=== PATIENT | male | born 1980 | race Caucasian/White ===

== ENCOUNTER 2016-03-25 10:57 | Emergency (ER) | payer MEDICARE, OTHER ==
[2016-03-25] MEDS ORDERED: KETOROLAC TROMETHAMINE 60 MG/2 ML VIAL IM ONE ×2 (11:46→11:48)
--- NOTE | 2016-03-25 11:46 | ERNOTE ---
ER Male HPI Date of Service: 03/25/16 Stated Complaint: BACK PAIN ER Male: testicular pain Time Seen by Provider: 03/25/16 11:29 Source: patient Exam Limitations: no limitations Immunizations: IMMUNIZATION HX Immunizations Up to Date Yes History of Influenza Vaccine No Hx Pneumococcal Vaccination No Allergies/Adverse Reactions: Allergies fluvoxamine Allergy (Verified 03/25/16 11:13) haloperidol [From Haldol] Allergy (Verified 03/25/16 11:13) haloperidol lactate [From Haldol] Allergy (Verified 03/25/16 11:13) olanzapine [From Zyprexa] Allergy (Verified 03/25/16 11:13) ziprasidone HCl [From Geodon] Allergy (Verified 03/25/16 11:13) ziprasidone mesylate [From Geodon] Allergy (Verified 03/25/16 11:13) Home Medications: HOME MEDICATIONS ALPRAZolam [Xanax] 0.5 mg PO BID PRN 01/06/16 [Last Taken Unknown] Quetiapine Fumarate [Seroquel] 300 mg PO DAILY 01/06/16 [Last Taken Unknown] Meloxicam 7.5 mg PO DAILY #10 tablet 03/25/16 [Last Taken Unknown] traMADol HCL [Ultram] 50 mg PO Q8H PRN #15 tablet 03/25/16 [Last Taken Unknown] - History of Present Illness Narrative: Patient presents with right back pain and right testicle pain. He states that he was moving in felt a pop in his back this happened about 2-3 weeks ago then recently helped another friend move and he felt like he strained his back. He felt a sensation running down the left testicular area since then he's been having some left testicular pain. Denies any discharge or drainage. Denies any urinary symptoms such as dysuria, increased frequency, or hematuria. His pain in his back is improved but is having quite a bit about pain in the left testicle. He is concerned about hernia. Denies any fever no chest pain no headache or dizziness he is having some mild lower abdominal pain on the right side on the right side. He is ambulating very well without any difficulty. No loss of bowel or bladder control. No paresthesia no radiculopathy. Timing: Present: intermittent Quality: Present: mild Associated Symptoms: Present: abdominal pain. Absent: fever/chills, diaphoresis , nausea, vomiting, dysuria, urinary frequency, polyuria, loss of bladder control, low back pain, nocturia Review of Systems - Review of Systems Constitutional: Absent: fever Respiratory: Absent: shortness of breath, cough Cardiology: Absent: chest pain, palpitations, syncope Musculoskeletal: Absent: back pain, muscle pain, neck pain, joint swelling All Other Systems: All systems neg except as marked - Patient's Past Medical History Patient History - Medical: Depression, Other Patient History - Cardiac/Respiratory: No pertinent hx Patient History - Cancer: No Hx of Cancer Patient History - Surgical Procedures: Other - Family History Mother Family History - Medical: No pertinent hx Father Family History - Medical: No pertinent hx - Social History Living Situations: home Smoking Status: Former smoker Alcohol Use: occasionally Drug Use: marijuana Physical Exam - Physical Exam General Appearance: Present: wd/wn, alert, no apparent distress Ears, Nose, Throat: Present: normal ENT inspection, normal pharynx Neck: Present: normal inspection, nontender, supple, full range of motion Respiratory: Present: no respiratory distress, normal breath sounds, no accessory muscle use, chest nontender, lungs clear Cardiovascular/Chest: Present: regular rate, rhythm, no murmur, normal peripheral pulses Gastrointestinal/Abdominal: Present: normal bowel sounds, nontender, nondistended, soft, no organomegaly. Absent: guarding, rebound Male Genitals Exam: Present: normal genitalia, testicular tenderness (L) - mild tenderness at the left testicle area. Absent: hernia mass Extremity Exam: Present: normal inspection, normal range of motion. Absent: no edema, decreased range of motion ED Progress - Vital Signs Patient's Vital Signs:: I have reviewed the patient's vital signs. Vital Signs: Vital Signs 03/25/16 11:06 Temperature 35.9 C L Pulse Rate 71 Respiratory 14 Rate Blood Pressure 161/95 O2 Sat by Pulse 100 Oximetry - CT/Ultrasound CT/Ultrasound Narrative: Ultrasound demonstrates no acute abnormality, left hydrocele - Progress/Reassessment Chief Complaint: Genitourinary Problem Progress:: Unchanged - Transfer of Care Expected Disposition: Discharge Additional Notes: Patient be discharged home and put on anti-inflammatories and warm compresses follow-up family doctor in 2-3 days return back to the ER with any change or worsening symptoms Departure Clinical Impression: Testicle pain Back pain Qualifiers: Back pain location: low back pain Chronicity: unspecified Back pain laterality : unspecified Sciatica presence: unspecified whether sciatica present Qualified Code(s): M54.5 - Low back pain - Departure Disposition: Home self-care Condition: Good Instructions: Back Pain, Adult, Muscle Strain, [id number] Referrals: Sandy Kirkpatrick MD [Primary Care Provider] - Prescriptions: Meloxicam 7.5 mg PO DAILY #10 tablet traMADol HCL [Ultram] 50 mg PO Q8H PRN #15 tablet PRN Reason: Pain
[2016-03-25 12:02] LABS: Urine Appearance Clear; Urine Bacteria None Seen; Urine Bilirubin Negative (NEGATIVE); Urine Blood Negative /ul (NEGATIVE); Urine Color Yellow; Urine Ketone Negative (NEGATIVE); Urine Nitrite Negative (NEGATIVE); Urine Protein Negative (NEGATIVE); Urine RBC None Seen /hpf (0-5); Urine Urobilinogen Normal (NORMAL); Urine WBC None Seen /hpf (0-5)
[2016-03-25 13:50] VITALS: BP 150/88
== END 2016-03-25 14:20 | disposition home or self-care (01) ==
LOC: ER 10:57
DX: N50.811 Right testicular pain (principal); M54.5 Low back pain; Z87.891 Personal history of nicotine dependence

== ENCOUNTER 2016-04-21 16:33 | Emergency (ER) | payer MEDICARE, OTHER ==
--- OUTSIDE RECORDS SUMMARY | 2016-04-21 17:29 | XMS REPORT | Continuity of Care Document ---
:1980 Author Organization [facility] ([facility]) [place] [address] Phone [phone] Care Team Providers Name Role Phone Sandy Kirkpatrick Primary Care Provider [phone] Source Comments This disclosure is being made pursuant to the Care Everywhere program, applicable federal and state laws, and may not contain all informaitonavailable regarding this patient.[facility] ([facility]) Active Allergies and Adverse Reactions No Known Allergies Current Medications Prescription Sig. Disp. Refills Start Date End Date Status clonazePAM 1 mg tablet Take 2 tabs (2 90 Tab 0 04/22/2013 Active mg) each morning and 1 tab (1 mg) at noon. Indications: Anxiety. SEROQUEL XR 300 mg Take 300 mg by 1 03/11/2016 Active Tb24 XR tablet mouth at bedtime. ALPRAZolam 1 mg tablet Take 1 mg by 1 03/22/2016 Active mouth 2 times daily as needed. methenamine 1 gram Take 1 tablet 240 tablet 3 04/06/2016 Active tablet (1,000 mg total) by mouth 2 times daily. Active Problems Problem Noted Date Anxiety disorder 04/21/2013 Schizophrenia 04/19/2013 Irritability and anger 04/18/2013 Most Recent Encounters Date Type Specialty Providers Description 04/06/2016 Office Visit Urology Francis Frye MD Dx: Dysuria (Primary Dx) Jerman Moran Jr., MD 02/17/2016 Office Visit Urology Francis Frye MD Chief Comp: Patient Jerman Moran Jr., MD Reported Reason For Visit Social History Tobacco Use Types Packs/Day Years Used Date Current Some Day Smoker Smokeless Tobacco: Never Used Alcohol Use Drinks/Week oz/Week Comments Yes Last Filed Vital Signs Vital Sign Reading Time Taken Blood Pressure 155/96 04/06/2016 8:54 AM CALL CENTER DIRECTOR Pulse 101 04/06/2016 8:54 AM CALL CENTER DIRECTOR Temperature 36.4 C (97.5 F) 04/06/2016 8:54 AM CALL CENTER DIRECTOR Respiratory Rate 18 04/22/2013 8:00 AM CALL CENTER DIRECTOR Height 1.803 m (5' 11") 04/19/2013 3:00 AM CALL CENTER DIRECTOR Weight 79.379 kg (175 lb) 04/22/2013 2:00 PM CALL CENTER DIRECTOR Body Mass Index 24.42 04/22/2013 2:00 PM CALL CENTER DIRECTOR Oxygen Saturation 100% 04/18/2013 10:46 PM CALL CENTER DIRECTOR Plan of Care Date Type Specialty Providers Description 10/05/2016 Appointment Urology Jerman Moran Jr., MD Chief Comp: Patient [address] [place] [address] [phone] (Fax) Health Maintenance Due Date Last Done Comments Hepatitis B Vaccine (1 of 3 - Primary Series) 1980 Tdap Vaccine 1993 Lipid Disorder Screening 2000 MMR Vaccine 2000 Td Vaccine 2000 Varicella Vaccine (1 of 2 - Adult - No Evidence of 2000 Immunity) Pneumococcal Vaccine (1 of 1 - PPSV23) 2001 Influenza Vaccine: Seasonal (#1) 10/11/2015 Results from Last 3 Months MICROSCOPIC URINALYSIS (04/06/2016 9:30 AM) Component Value Range WBCs-Urine 0-2 0-5 /HPF RBCs-Urine Negative 0-2 /HPF Amorphous Sediment-Urine Many(A) None, Rare Specimen Urine URINALYSIS WITH REFLEX CULTURE (04/06/2016 9:30 AM) Component Value Range Color, Urine Straw Straw, Pale Yellow, Yellow, Clear, None Clarity, Urine Cloudy(A) Clear pH, Urine 6.0 <9.0 Spec [place], Urine 1.020 1.000-1.030 Glucose, Urine Negative Negative Blood, Urine Negative Negative Ketones, Urine Negative Negative Protein, Urine Negative Negative Urobilinogen, Urine Normal Normal Bilirubin, Urine Negative Negative Leukocyte Esterase, Urine Negative Negative Nitrite, Urine Negative Negative Specimen Urine URINALYSIS WITH REFLEXED CULTURE AND MICROSCOPIC EXAM (04/06/2016 9:30 AM) Specimen Culture - Urine, Midstream clean catch Narrative The following orders were created for panel order URINALYSIS WITH REFLEXED CULTURE AND MICROSCOPIC EXAM. Procedure Abnormality Status --------- ------ URINALYSIS WITH REFLEX C...[[id number]]AbnormalFinal result MICROSCOPIC URINALYSIS[[id number]] Abnormal Final result URINE CULTURE, REFLEXED[[id number]] Please view results for these tests on the individual orders.
[2016-04-21 17:36] LABS: Hematocrit 44.5 % (42.0-52.0); Hemoglobin 15.4 gm/dL (13.5-18.0); Mean Cell Volume 88.6 fl (78-100); Mean Corpuscular Hemoglobin 30.7 pg (27-31); Mean Corpuscular Hgb Conc 34.6 g/dl (32-36); Neutrophil # 2.8 K/mm3 (1.3-6.0); Neutrophil % 46.9 % (42-75.0); Platelet Count 226 K/mm3 (150-450); Red Blood Count 5.02 M/mm3 (4.7-6.0); Red Cell Distribution Width 12.4 % (11.5-14.0); White Blood Count 5.9 K/mm3 (4.0-10.5)
[2016-04-21 17:46] LABS: ALT 29 U/L (19-67); AST 14 U/L (0-48); Albumin * 4.3 gm/dl (3.4-5.0); Alkaline Phosphatase * 61 U/L (50-170); Anion Gap 13.8 mmol/L (6.8-13.8); BUN/Creatinine Ratio 12.5 (9.0-21.6); Bilirubin, Total 0.2 mg/dL (0.0-1.1); Blood Urea Nitrogen 17 mg/dL (6-23); Ca. Corrected For Albumin 8.4 mg/dL (8.4-10.2); Carbon Dioxide 28.4 mmol/L (24-32.6); Chloride 107 mmol/L (97-106); Glucose * 101 mg/dL (70-110); Potassium 4.2 mmol/L (3.4-4.6); Salicylate Less than 2.8 mg/dL (2.8-20.0); Sodium 145 mmol/L (132-142); Total Protein 7.5 gm/dL (6.2-8.2)
[2016-04-21 17:55] LABS: Cocaine Ur Negative (NEGATIVE); Urine Barbiturate Negative (NEGATIVE); Urine Opiates Negative (NEGATIVE); Urine PCP Negative (NEGATIVE)
[2016-04-21 17:56] LABS: Urine Benzodiazepines Positive (NEGATIVE); Urine THC Positive (NEGATIVE)
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
[2016-04-21] MEDS ORDERED: ALPRAZolam 0.25 MG TABLET PO ONE (20:10)
[2016-04-21] MEDS ORDERED: METHENAMINE MANDELATE 1 GM TABLET PO ONE (20:11)
[2016-04-21] MEDS ORDERED: ALPRAZolam 0.25 MG TABLET ONE (20:16)
[2016-04-22] MEDS ORDERED: ALPRAZolam 0.25 MG TABLET PO ONE (10:15)
[2016-04-22 10:20] LABS: Urine Bilirubin Negative (NEGATIVE); Urine Blood Negative /ul (NEGATIVE); Urine Ketone Negative (NEGATIVE); Urine Nitrite Negative (NEGATIVE); Urine Protein Negative (NEGATIVE); Urine Specific Gravity 1.015 SP.GR. (1.005-1.030); Urine Urobilinogen Normal (NORMAL)
[2016-04-22 10:26] LABS: Urine Appearance Clear; Urine Bacteria None Seen; Urine Color Yellow; Urine RBC None Seen /hpf (0-5); Urine WBC None Seen /hpf (0-5)
[2016-04-22] MEDS ORDERED: ALPRAZolam 0.25 MG TABLET ONE (10:29)
[2016-04-22] MEDS: METHENAMINE HIPPURATE 1 GM PO SCH ×2 (13:12→22:43)
[2016-04-22] MEDS ORDERED: risperiDONE 1 MG TABLET PO ONE (18:00)
[2016-04-22 18:21] VITALS: BP 158/105
[2016-04-22] MEDS ORDERED: risperiDONE 1 MG TABLET ONE (22:32)
[2016-04-23] MEDS: METHENAMINE MANDELATE 1 GM TABLET PO SCH ×2 (06:38→10:08)
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
[2016-04-23] MEDS: METHENAMINE HIPPURATE 1 GM PO SCH (10:07)
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
== END 2016-04-23 10:09 | disposition home or self-care (01) ==
LOC: ER 16:33
DX: Z04.6 Encounter for general psychiatric examination, requested by authority (principal); F99 Mental disorder, not otherwise specified
CPT/HCPCS: 36415; 80053; 80307; 81001; 85025; 99284; G0480; G0481

== ENCOUNTER 2016-04-29 10:31 | Emergency (ER) | payer MEDICARE, OTHER ==
--- OUTSIDE RECORDS SUMMARY | 2016-04-29 10:56 | XMS REPORT | Continuity of Care Document ---
:1980 Author Organization [facility] ([facility]) [place] [address] Phone [phone] Care Team Providers Name Role Phone Sandy Kirkpatrick Primary Care Provider [phone] Source Comments This disclosure is being made pursuant to the Care Everywhere program, applicable federal and state laws, and may not contain all informaitonavailable regarding this patient.[facility] ([facility]) Active Allergies and Adverse Reactions No Known [...] Recent Encounters Date Type Specialty Providers Description 04/27/2016 Telephone Urology Jerman Moran Jr., MD Chief Comp: Discuss Test Results 04/06/2016 Office Visit Urology Francis Frye MD [...] Taken Blood Pressure 155/96 04/06/2016 8:54 AM MIRROR FRAMER Pulse 101 04/06/2016 8:54 AM MIRROR FRAMER Temperature 36.4 C (97.5 F) 04/06/2016 8:54 AM MIRROR FRAMER Respiratory Rate 18 04/22/2013 8:00 AM MIRROR FRAMER Height 1.803 m (5' 11") 04/19/2013 3:00 AM MIRROR FRAMER Weight 79.379 kg (175 lb) 04/22/2013 2:00 PM MIRROR FRAMER Body Mass Index 24.42 04/22/2013 2:00 PM MIRROR FRAMER Oxygen Saturation 100% 04/18/2013 10:46 PM MIRROR FRAMER Plan of Care Date Type Specialty Providers Description 10/05/2016 Appointment Urology Jerman Moran Jr., MD Chief Comp: Patient [address] [place] [address] [phone] (Fax) Health Maintenance Due Date Last Done [...] Cloudy(A) Clear pH, Urine 6.0 <9.0 Spec [place], Urine 1.020 1.000-1.030 Glucose, Urine Negative Negative [...] Abnormality Status --------- ------ URINALYSIS WITH REFLEX C...[[id number]]AbnormalFinal result MICROSCOPIC URINALYSIS[[id number]] Abnormal Final result URINE CULTURE, REFLEXED[[id number]] Please view results for these tests on the individual orders.
[2016-04-29 10:59] LABS: Hematocrit 38.6 % (42.0-52.0); Hemoglobin 13.5 gm/dL (13.5-18.0); Mean Cell Volume 87.7 fl (78-100); Mean Corpuscular Hemoglobin 30.7 pg (27-31); Mean Platelet Volume 9.3 fl (6.0-9.5); Neutrophil # 2.6 K/mm3 (1.3-6.0); Neutrophil % 51.4 % (42-75.0); Platelet Count 184 K/mm3 (150-450); Red Cell Distribution Width 12.3 % (11.5-14.0)
[2016-04-29 11:13] LABS: ALT 23 U/L (19-67); AST 15 U/L (0-48); Albumin * 3.8 gm/dl (3.4-5.0); Alkaline Phosphatase * 52 U/L (50-170); Bilirubin, Total 0.3 mg/dL (0.0-1.1); Blood Urea Nitrogen 22 mg/dL (6-23); Ca. Corrected For Albumin 8.5 mg/dL (8.4-10.2); Calcium * 8.7 mg/dL (7.9-10.9); Carbon Dioxide 26.6 mmol/L (24-32.6); Chloride 111 mmol/L (97-106); Glucose * 101 mg/dL (70-110); Potassium 3.6 mmol/L (3.4-4.6); Sodium 145 mmol/L (132-142); Total Protein 6.7 gm/dL (6.2-8.2)
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
[2016-04-29 12:14] LABS: Urine Bilirubin Negative (NEGATIVE); Urine Blood 25 /ul (NEGATIVE); Urine Ketone Negative (NEGATIVE); Urine Nitrite Negative (NEGATIVE); Urine Protein 30 mg/dL (NEGATIVE); Urine Specific Gravity >=1.030 SP.GR. (1.005-1.030); Urine Urobilinogen Normal (NORMAL)
[2016-04-29 12:23] LABS: Urine Appearance Clear; Urine Bacteria 1+; Urine Color Yellow; Urine Transitional Epi Cells Few - 1+ /hpf; Urine WBC 0-5 /hpf (0-5)
[2016-04-29 12:24] LABS: Urine Squamous Epithelial Cell Moderate - 2+ /hpf
[2016-04-29 12:34] LABS: Cocaine Ur Negative (NEGATIVE); Urine Barbiturate Negative (NEGATIVE); Urine Opiates Negative (NEGATIVE); Urine PCP Negative (NEGATIVE)
[2016-04-29 12:36] LABS: Urine Benzodiazepines Positive (NEGATIVE); Urine THC Positive (NEGATIVE)
[2016-04-29 14:11] VITALS: BP 121/65
== END 2016-04-29 14:26 | disposition home or self-care (01) ==
LOC: ER 10:31
DX: F20.9 Schizophrenia, unspecified (principal)
CPT/HCPCS: 36415; 80053; 80307; 81001; 85025; 99282; G0481

== ENCOUNTER 2016-09-24 07:56 | Emergency (ER) | payer MEDICARE, OTHER ==
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
[2016-09-24 09:23] LABS: Cocaine Ur Negative (NEGATIVE); Urine Barbiturate Negative (NEGATIVE); Urine PCP Negative (NEGATIVE)
[2016-09-24 09:25] LABS: Urine Benzodiazepines Positive (NEGATIVE); Urine Opiates Positive (NEGATIVE); Urine THC Positive (NEGATIVE)
[2016-09-24 09:30] LABS: Urine Bilirubin 1 mg/dl (NEGATIVE); Urine Blood Negative /ul (NEGATIVE); Urine Ketone Negative (NEGATIVE); Urine Nitrite Negative (NEGATIVE); Urine Protein 15 mg/dL (NEGATIVE); Urine Specific Gravity 1.025 SP.GR. (1.005-1.030); Urine Urobilinogen Normal (NORMAL); Urine pH 5.5 pH (5.0-7.0)
[2016-09-24 09:44] LABS: Urine Appearance Slightly Cloudy; Urine Bacteria TRACE; Urine Color Dark Yellow; Urine RBC 0-5 /hpf (0-5)
[2016-09-24] MEDS ORDERED: AZITHROMYCIN 250 MG TABLET PO ONE (09:58)
[2016-09-24] MEDS ORDERED: AZITHROMYCIN 250 MG TABLET ONE (10:11)
[2016-09-24] MEDS ORDERED: LIDOCAINE HCL 20 ML VIAL ONE (10:15)
[2016-09-24 10:23] VITALS: BP 153/87
== END 2016-09-24 10:23 | disposition home or self-care (01) ==
LOC: ER 07:56
DX: N34.2 Other urethritis (principal)